=== PATIENT | female | born 1990 | race African-American/Black ===

== ENCOUNTER 2023-08-07 07:52 | Emergency (ER) | payer MEDICAID, OTHER ==
[~2023-08-07] VITALS: Ht 175.3 cm; Wt 108.1 kg
[~2023-08-07 07:52] MED LIST: CEPH250C2; HYDR-1421
[2023-08-07 08:00] VITALS: BP 104/71; PULSE 94; RESP 16; O2SAT 99
[2023-08-07 08:32] LABS: Basophils # (auto) 0 10 ^3/uL (0-0.2); Basophils % (auto) 0.6 % (0.0-2.0); Eosinophils # (auto) 0.2 10 ^3/uL (0-0.8); Eosinophils % (auto) 2.6 % (0.0-7.0); Hematocrit 35.1 % (36.0-46.0); Hemoglobin 11.8 g/dL (12.2-16.2); Lymphocytes # (auto) 2.1 10 ^3/uL (0.4-5.4); Lymphocytes % (auto) 31.3 % (10.0-50.0); Mean Corpuscular Hemoglobin 29.9 pg (28.0-32.0); Mean Corpuscular Hgb Conc. 33.6 g/dL (32.0-36.0); Mean Corpuscular Volume 88.9 fL (80.0-100.0); Monocytes # (auto) 0.3 10 ^3/uL (0-1.3); Monocytes % (auto) 3.9 % (0.0-12.0); Neutrophils # (auto) 4.1 10 ^3/uL (1.6-8.6); Neutrophils % (auto) 61.6 % (37.0-80.0); Red Blood Cells 3.94 10^6/uL (4.0-5.20); Red Cell Distribution Width 12.9 % (11.8-14.3); White Blood Cell 6.7 10^3/uL (4.4-10.8)
[2023-08-07 08:59] LABS: Alanine Aminotransferase 31 U/L (7-40); Albumin 3.8 g/dL (3.2-4.8); Alkaline Phosphatase 62 U/L (46-116); Anion Gap 8 (5-15); Aspartate Aminotransferase 24 U/L (13-40); Calcium 9.4 mg/dL (8.5-10.1); Carbon Dioxide 21 mmol/L (20-30); Chloride 107 mmol/L (98-107); Glucose 86 mg/dL (74-106); Potassium 3.9 mmol/L (3.5-5.1); Sodium 136 mmol/L (136-145)
[2023-08-07 09:00] LABS: Bilirubin, Total 0.4 mg/dL (0.2-1.0); Total Protein 6.7 g/dL (5.7-8.2)
[2023-08-07 09:04] LABS: BUN/Creatinine Ratio 9.1 (10.0-20.0); Blood Urea Nitrogen < 5 mg/dL (9-23)
[2023-08-07 10:34] LABS: Urine Bacteria NONE SEEN /hpf (None Seen); Urine Blood Negative /uL (Negative); Urine Clarity Clear (Clear); Urine Color Colorless (Yellow); Urine Protein, UAD Negative (Negative); Urine Specific Gravity 1.008 (1.001-1.035); Urine Urobilinogen Normal (Negative); Urine WBC 1 /hpf (0 - 5)
== END 2023-08-07 11:21 | disposition home or self-care (01) ==
LOC: ER 07:52
DX: O20.8 Other hemorrhage in early pregnancy (principal); R10.2 Pelvic and perineal pain; O99.512 Diseases of the respiratory system complicating pregnancy, second trimester; J45.909 Unspecified asthma, uncomplicated; Z79.899 Other long term (current) drug therapy; Z3A.16 16 weeks gestation of pregnancy
CPT/HCPCS: 36415; 76805; 80053; 81001; 84702; 85025

== ENCOUNTER 2023-12-28 04:46 | Inpatient (IN) | payer MEDICAID ==
[2023-12-27 10:06] LABS: Urine Bacteria None Seen /hpf (None Seen)
[2023-12-27 10:30] LABS: Basophils # (auto) 0 10 ^3/uL (0-0.2); Basophils % (auto) 0.4 % (0.0-2.0); Eosinophils # (auto) 0.2 10 ^3/uL (0-0.8); Eosinophils % (auto) 3.1 % (0.0-7.0); Hematocrit 33.4 % (36.0-46.0); Hemoglobin 11.5 g/dL (12.2-16.2); Lymphocytes # (auto) 2.7 10 ^3/uL (0.4-5.4); Lymphocytes % (auto) 39.8 % (10.0-50.0); Mean Corpuscular Hemoglobin 29.6 pg (28.0-32.0); Mean Corpuscular Hgb Conc. 34.3 g/dL (32.0-36.0); Mean Corpuscular Volume 86.4 fL (80.0-100.0); Monocytes # (auto) 0.4 10 ^3/uL (0-1.3); Monocytes % (auto) 5.9 % (0.0-12.0); Neutrophils # (auto) 3.5 10 ^3/uL (1.6-8.6); Neutrophils % (auto) 50.8 % (37.0-80.0); Nucleated Red Blood Cells % 0.1 %; Red Blood Cells 3.87 10^6/uL (4.0-5.20); Red Cell Distribution Width 13.4 % (11.8-14.3); White Blood Cell 6.9 10^3/uL (4.4-10.8)
[2023-12-27 10:39] LABS: Urine Blood Negative /uL (Negative); Urine Clarity Clear (Clear); Urine Color Colorless (Yellow); Urine Protein, UAD Negative (Negative); Urine Specific Gravity 1.003 (1.001-1.035); Urine Urobilinogen Normal (Negative); Urine WBC <1 /hpf (0 - 5); Urine pH 6.5 (5.0-9.0)
[2023-12-27 10:43] LABS: Alanine Aminotransferase 11 U/L (7-40); Albumin 3.5 g/dL (3.2-4.8); Alkaline Phosphatase 66 U/L (46-116); Anion Gap 7 (5-15); Aspartate Aminotransferase 14 U/L (13-40); Bilirubin, Total 0.4 mg/dL (0.2-1.0); Calcium 9.3 mg/dL (8.5-10.1); Carbon Dioxide 20 mmol/L (20-30); Chloride 108 mmol/L (98-107); Glucose 119 mg/dL (74-106); Potassium 3.5 mmol/L (3.5-5.1); Sodium 135 mmol/L (136-145); Total Protein 6.3 g/dL (5.7-8.2)
[2023-12-27 10:49] LABS: Amphetamine Screen, Urine Neg (NEGATIVE); Barbiturate Scree,Urine Neg (NEGATIVE); Benzodiazephine Screen, Urine Neg (NEGATIVE); Cannabinoid Screen, Urine Neg (NEGATIVE); Cocaine Screen, Urine Neg (NEGATIVE); Opiate Scree,Urine Neg (NEGATIVE); Phencyclidine Screen, Urine Neg (NEGATIVE)
[2023-12-27 11:04] LABS: BUN/Creatinine Ratio 8.9 (10.0-20.0); Blood Urea Nitrogen < 5 mg/dL (9-23)
[2023-12-27 11:08] LABS: INR 0.94 (0.9-1.15); Partial Thromboplastin Time 26.2 SEC (24.5-34.5); Prothrombin Time 9.9 sec (9.3-11.8)
[~2023-12-28] VITALS: Ht 172.7 cm; Wt 120.2 kg
[2023-12-28] VITALS (17 sets, daily range): BP systolic 100–123; BP diastolic 52–78; PULSE 69–84; RESP 16–20; TEMP 97.3–98.1; O2SAT 95–100
[2023-12-28] MEDS: LACTATED RINGER'S 1,000 ML IV ONE (05:29)
[2023-12-28] MEDS ORDERED: PREN27TA7 OR (05:31)
[2023-12-28] MEDS: LACTATED RINGER'S 1,000 ML IV SCH ×2 (05:50→14:04)
[2023-12-28] MEDS: ceFAZolin 2 GM/D5W50ml 50 ML IV ONE (06:20)
[2023-12-28] MEDS ORDERED: MORPHINE SULF PF 5 MG/10 ML VIAL ONE (06:38)
[2023-12-28] MEDS ORDERED: fentaNYL CITRATE 100 MCG/2 ML VL ONE (06:38)
[2023-12-28] MEDS ORDERED: DexAMETHasone SOD PHOS 10MG/1ML VIAL INJ ONE (06:45)
[2023-12-28] MEDS ORDERED: ONDANSETRON HCL 4 MG/2 ML VIAL ONE (06:45)
[2023-12-28] MEDS ORDERED: oxyTOCIN 10 UNIT/ML 10ML VIAL ONE (06:46)
[2023-12-28 07:06] LABS: RPR Non Reactive (Non Reactive)
[2023-12-28] MEDS ORDERED: HYDR-4902 PO (07:15)
[2023-12-28] MEDS ORDERED: ceFAZolin 1GM/50ML 50 ML IV SCH (07:15)
[2023-12-28] MEDS ORDERED: IBUP-1456 PO (07:15)
[2023-12-28] MEDS ORDERED: ONDANSETRON HCL 4 MG/2 ML VIAL IV PRN (07:15)
[2023-12-28] MEDS ORDERED: DOCU-94 PO (07:15)
[2023-12-28] MEDS ORDERED: PHENYLEPHRINE HCL 10 MG/ML VL ONE (07:23)
[2023-12-28] MEDS ORDERED: SODIUM CHLORIDE LOCK 10 ML ONE (07:23)
[2023-12-28] MEDS ORDERED: diphenhdrAMINE HCL 50 MG/1 ML VL ONE (08:16)
[2023-12-28] MEDS ORDERED: HYDROmorphone HCL 2 MG/ML VL/or syr IV PRN (08:45)
[2023-12-28] MEDS ORDERED: NALOXONE HCL 0.4 MG/ML VIAL IV PRN (08:45)
[2023-12-28] MEDS ORDERED: SODIUM CITR/CITRIC ACID ORAL SOLN 30 ML PO SCH (09:00)
[2023-12-28] MEDS: LACT. RINGERS/OXYTOCIN 20UNITS 1,000 ML IV ONE (10:12)
[2023-12-28] MEDS: NALBUPHINE HCL 10 MG/1ml INJECTION IV ONE (10:13)
[2023-12-28] MEDS: ACETAMINOPHEN IV 1000 MG/100ML (10MG/ML) IV PRN (10:14)
[2023-12-28] MEDS: HYDROmorphone HCL 2 MG/ML VL/or syr IV PRN (13:07)
[2023-12-28] MEDS: ONDANSETRON HCL 4 MG/2 ML VIAL IV PRN (13:07)
[2023-12-28] MEDS: ceFAZolin 1GM/50ML 50 ML IV SCH (14:03)
[2023-12-28 21:22] LABS: Basophils # (auto) 0 10 ^3/uL (0-0.2); Basophils % (auto) 0.1 % (0.0-2.0); Eosinophils # (auto) 0 10 ^3/uL (0-0.8); Hematocrit 34.8 % (36.0-46.0); Hemoglobin 11.6 g/dL (12.2-16.2); Lymphocytes # (auto) 2.3 10 ^3/uL (0.4-5.4); Lymphocytes % (auto) 12.7 % (10.0-50.0); Mean Corpuscular Hemoglobin 28.8 pg (28.0-32.0); Mean Corpuscular Hgb Conc. 33.3 g/dL (32.0-36.0); Mean Corpuscular Volume 86.6 fL (80.0-100.0); Monocytes # (auto) 0.6 10 ^3/uL (0-1.3); Monocytes % (auto) 3.1 % (0.0-12.0); Neutrophils # (auto) 15.3 10 ^3/uL (1.6-8.6); Neutrophils % (auto) 84.1 % (37.0-80.0); Red Blood Cells 4.02 10^6/uL (4.0-5.20); Red Cell Distribution Width 13.2 % (11.8-14.3); White Blood Cell 18.2 10^3/uL (4.4-10.8)
[2023-12-28] MEDS: diphenhdrAMINE HCL 50 MG/1 ML VL IV PRN (22:59)
[2023-12-29] VITALS (11 sets, daily range): BP systolic 96–116; BP diastolic 51–68; PULSE 70–82; RESP 14–18; TEMP 97.4–98.2; O2SAT 97–99
[2023-12-29] MEDS: GUM (CHEWING) 1 GUM CHEW CHEW ONE (07:03)
[2023-12-29] MEDS ORDERED: BISACODYL 10 MG RECT SUPP PR PRN (08:00)
[2023-12-29] MEDS: IBUPROFEN 800 MG TAB PO PRN (08:53)
[2023-12-29] MEDS: DOCUSATE CALCIUM 240 MG CAP PO SCH (09:59)
[2023-12-29] MEDS: DOCUSATE SOD 100 MG CAP PO SCH (09:59)
[2023-12-29] MEDS: HYDROcodone-ACET 5/325MG TAB PO PRN ×2 (10:03→19:59)
[2023-12-29 11:27] LABS: Basophils # (auto) 0.1 10 ^3/uL (0-0.2); Basophils % (auto) 0.4 % (0.0-2.0); Eosinophils # (auto) 0.1 10 ^3/uL (0-0.8); Eosinophils % (auto) 0.8 % (0.0-7.0); Hematocrit 31.4 % (36.0-46.0); Hemoglobin 10.3 g/dL (12.2-16.2); Lymphocytes # (auto) 3.3 10 ^3/uL (0.4-5.4); Mean Corpuscular Hemoglobin 28.8 pg (28.0-32.0); Mean Corpuscular Hgb Conc. 32.7 g/dL (32.0-36.0); Mean Corpuscular Volume 88.2 fL (80.0-100.0); Monocytes # (auto) 0.6 10 ^3/uL (0-1.3); Monocytes % (auto) 4.5 % (0.0-12.0); Neutrophils # (auto) 9.7 10 ^3/uL (1.6-8.6); Neutrophils % (auto) 70.3 % (37.0-80.0); Nucleated Red Blood Cells % 0.1 %; Red Blood Cells 3.56 10^6/uL (4.0-5.20); Red Cell Distribution Width 13.6 % (11.8-14.3); White Blood Cell 13.8 10^3/uL (4.4-10.8)
[2023-12-29] MEDS: SIMETHICONE 80 MG CHEWABLE TABLET PO SCH (11:56)
[2023-12-30 03:15] VITALS: BP 112/72; PULSE 76; RESP 18; TEMP 98; O2SAT 97
[2023-12-30 07:00] VITALS: BP 113/70; PULSE 88; RESP 18; TEMP 97.9; O2SAT 99
[2023-12-30 11:00] VITALS: BP 118/67; PULSE 79; RESP 18; TEMP 98.1; O2SAT 98
[2023-12-30 15:00] VITALS: BP 120/69; PULSE 91; RESP 18; TEMP 98; O2SAT 98
[2023-12-30 18:30] VITALS: BP 130/70; PULSE 78; RESP 18; TEMP 98.5; O2SAT 99
[2023-12-30 23:00] VITALS: BP 119/55; PULSE 77; RESP 18; TEMP 98.3; O2SAT 99
[2023-12-31 03:09] VITALS: BP 115/58; PULSE 72; RESP 16; TEMP 98.5; O2SAT 98
[2023-12-31 06:52] VITALS: BP 122/70; PULSE 76; RESP 16; TEMP 98.4; O2SAT 98
[2024-01-01 18:06] LABS: Treponema pallidum Ab (FTA-Ab) Non Reactive (Non Reactive)
== END 2023-12-31 09:50 | disposition home or self-care (01) | DRG 539 ==
LOC: LDRP 04:46
PROVIDERS: ADMIT Obstetrics & Gynecology; ATTEND Obstetrics & Gynecology
PROC: 0UL70CZ Occlusion of Bilateral Fallopian Tubes with Extraluminal Device, Open Approach (ICD-10-PCS; 2023-12-28)
PROC: 10D00Z1 Extraction of Products of Conception, Low, Open Approach (ICD-10-PCS; principal; 2023-12-28 07:09)
DX: O34.211 Maternal care for low transverse scar from previous cesarean delivery (principal); D25.9 Leiomyoma of uterus, unspecified; O99.214 Obesity complicating childbirth; E66.01 Morbid (severe) obesity due to excess calories; O34.13 Maternal care for benign tumor of corpus uteri, third trimester; O99.892 Other specified diseases and conditions complicating childbirth; N73.6 Female pelvic peritoneal adhesions (postinfective); Z37.0 Single live birth; Z30.2 Encounter for sterilization; Z3A.38 38 weeks gestation of pregnancy
CPT/HCPCS: 36415; 59025; 80053; 80307; 81001; 85025; 85610; 85730; 86592; 86703; 86706; 86803; 86850; 86900; 86901; 94760; 94762; 96360; 96361; 96374; 96375; G0378; J0131; J1100; J2405; J2590

== ENCOUNTER 2024-01-09 09:53 | Emergency (ER) | payer MEDICAID ==
[~2024-01-09] VITALS: Ht 172.7 cm; Wt 115.1 kg
[~2024-01-09 09:53] MED LIST changes: -CEPH250C2; +DOCU-94 PO; -HYDR-1421; +HYDR-4902 PO; +IBUP-1456 PO; +PREN27TA7 OR
[2024-01-09 12:17] LABS: Basophils # (auto) 0 10 ^3/uL (0-0.2); Basophils % (auto) 0.3 % (0.0-2.0); Eosinophils # (auto) 0.3 10 ^3/uL (0-0.8); Eosinophils % (auto) 3.7 % (0.0-7.0); Hematocrit 33.2 % (36.0-46.0); Hemoglobin 10.9 g/dL (12.2-16.2); Lymphocytes # (auto) 2.5 10 ^3/uL (0.4-5.4); Lymphocytes % (auto) 32.9 % (10.0-50.0); Mean Corpuscular Hemoglobin 28.6 pg (28.0-32.0); Mean Corpuscular Hgb Conc. 32.9 g/dL (32.0-36.0); Mean Corpuscular Volume 86.9 fL (80.0-100.0); Monocytes # (auto) 0.2 10 ^3/uL (0-1.3); Monocytes % (auto) 2.9 % (0.0-12.0); Neutrophils # (auto) 4.7 10 ^3/uL (1.6-8.6); Neutrophils % (auto) 60.2 % (37.0-80.0); Red Blood Cells 3.83 10^6/uL (4.0-5.20); Red Cell Distribution Width 13.5 % (11.8-14.3); White Blood Cell 7.7 10^3/uL (4.4-10.8)
[2024-01-09 12:30] LABS: Anion Gap 8 (5-15); Carbon Dioxide 22 mmol/L (20-30); Chloride 111 mmol/L (98-107); Potassium 3.2 mmol/L (3.5-5.1); Sodium 141 mmol/L (136-145)
[2024-01-09 12:36] LABS: BUN/Creatinine Ratio 8.1 (10.0-20.0); Blood Urea Nitrogen 5 mg/dL (9-23); Glucose 104 mg/dL (74-106)
[2024-01-09 12:56] VITALS: BP 159/92; PULSE 70; RESP 18; TEMP 99.4; O2SAT 96
[2024-01-09] MEDS ORDERED: CEPH500C PO (13:06)
== END 2024-01-09 13:13 | disposition home or self-care (01) ==
LOC: ER 09:53
DX: O90.89 Other complications of the puerperium, not elsewhere classified (principal); S31.134D Puncture wound of abdominal wall without foreign body, left lower quadrant without penetration into peritoneal cavity, subsequent encounter; J45.909 Unspecified asthma, uncomplicated; K80.20 Calculus of gallbladder without cholecystitis without obstruction; Z48.01 Encounter for change or removal of surgical wound dressing; Z98.890 Other specified postprocedural states; Z79.899 Other long term (current) drug therapy; Z91.09 Other allergy status, other than to drugs and biological substances; X58.XXXD Exposure to other specified factors, subsequent encounter
CPT/HCPCS: 36415; 80048; 85025